=== PATIENT | female | born 1970 | race Caucasian/White ===

== ENCOUNTER 2017-03-08 08:54 | Outpatient (CLI) | payer OTHER ==
[2017-03-08 12:28] LABS: CHOL/HDL RATIO 3.9 (<4.4); CHOLESTEROL 213 mg/dL; GLUCOSE 87 mg/dL (70-100); HDL CHOLESTEROL 54 mg/dL; LDL/HDL RATIO 2.6 (<4.4); TRIGLYCERIDES 107 mg/dL; VLDL CHOLESTEROL 21 mg/dL
== END 2017-03-08 08:55 | disposition home or self-care (01) ==
LOC: LAB.R 08:54
PROVIDERS: ATTEND Physician Assistant Medical
DX: Z00.00 Encounter for general adult medical examination without abnormal findings (principal)
CPT/HCPCS: 80061; 82947

== ENCOUNTER 2017-06-01 08:39 | Outpatient (CLI) | payer OTHER ==
--- NOTE | 2017-06-02 16:37 | Mammography Report ---
DIGITAL SCREENING MAMMOGRAM: 06/01/2017 CLINICAL INDICATION: A 46-year-old with history of late childbearing, family history of breast cancer , history of benign biopsy, for screening. COMPARISON: 01/2014, 09/2011. TECHNIQUE: Routine CC and MLO projections were obtained of the breasts. Bilateral laterally exaggera lorenzo craniocaudal views. FINDINGS: Parenchymal tissue within both breasts is heterogeneously dense, which may lower the sensi tivity of mammography; however, there are no dominant masses, suspicious microcalcifications, or seco ndary signs of malignancy. In comparison to the previous studies, there are no significant changes. ASSESSMENT: NO MAMMOGRAPHIC EVIDENCE OF MALIGNANCY. NO SIGNIFICANT INTERVAL CHANGES. RECOMMENDATION: Screening mammography is recommended annually. BIRADS category 1 - negative. STANDARD QUALIFYING STATEMENTS 1. This examination was reviewed with the aid of Computed-Aided Detection (CAD). 2. A negative or benign imaging report should not delay biopsy if clinically suspicious findings are present. Consider surgical consultation if warranted. More than 5% of cancers are not identified by i maging. 3. Dense breasts may obscure an underlying neoplasm. JOB #: [id number] EXT JOB #:[id number]
== END 2017-06-01 08:40 | disposition home or self-care (01) ==
LOC: DI 08:39
PROVIDERS: ATTEND Physician Assistant Medical
DX: Z12.31 Encounter for screening mammogram for malignant neoplasm of breast (principal); Z80.3 Family history of malignant neoplasm of breast
CPT/HCPCS: 77067

== ENCOUNTER 2020-10-30 14:23 | Outpatient (CLI) | payer BC ==
--- NOTE | 2020-10-31 07:51 | Mammography Report ---
BILATERAL DIGITAL SCREENING MAMMOGRAM 3D/2D: 10/30/2020 CLINICAL: Routine screening. Comparison is made to exams dated: 06/01/2017 mammogram and 02/23/2014 mammogram - [facility]. The tissue of both breasts is heterogeneously dense. This may lower the sensitivity of ma mmography. No significant masses, calcifications, or other findings are seen in either breast. There has been no significant interval change. IMPRESSION: NEGATIVE There is no mammographic evidence of malignancy. A 1 year screening mammogram is recommended. This exam was interpreted at Station ID: [id number]. NOTE: For mammograms, a report in lay terms will be sent to the patient. Approximately 15% of breast malignancies will not be visualized mammographically. In the management of a palpable breast mass, a negative mammogram must not discourage biopsy of a clinically suspicious lesion. Electronically Signed By: Ruel Khan M.D. ar/frenchrad:10/30/2020 16:42:26 ACR BI-RADS Category 1: Negative 3341F PARENCHYMAL PATTERN: (D) - The breast(s) demonstrate(s) heterogeneously dense fibroglandular parenchy ma. BI-RADS CATEGORY: (1) - 1 RECOMMENDATION: (ANNUAL) - Recommend routine annual screening mammography. [id number] 1 year screening LATERALITY: (B)
== END 2020-10-30 14:24 | disposition home or self-care (01) ==
LOC: DI 14:23
DX: Z12.31 Encounter for screening mammogram for malignant neoplasm of breast (principal)

== ENCOUNTER 2021-07-10 14:25 | Outpatient (CLI) | payer BC ==
--- NOTE | 2021-07-11 12:37 | Ultrasound Report ---
PROCEDURE: Pelvic w/Transvaginal INDICATIONS: IUD SURVEILLANCE TECHNIQUE: Real-time scanning was performed of the pelvic organs, with image documentation. Additional endovagi nal scanning was necessary due to incomplete visualization of the adnexal and endometrial structures by transabdominal scanning. COMPARISON: None. FINDINGS: No pathologic free abdominal or pelvic fluid. Uterus: Uterus is anteverted and measures 6.2 x 3.2 x 5.1 cm. The endometrium measures 0.2 cm in combined thickness. An IUD appears in appropriate position, extending into the fundal endometrium. Th ere is a left anterior intramural fibroid measuring 2.3 x 1.7 x 2.2 cm and a right posterior fibroid measuring 0.6 x 0.5 x 0.5 cm. Ovaries: The right ovary measures approximately 2.1 x 1.1 x 1 cm with a volume of 1.2 mL. The left o vary measures 2.2 x 1.2 x 1.3 cm with a volume of 1.7 mL. No adnexal masses identified. IMPRESSION: 1. IUD demonstrated in expected position, extending into the fundal endometrium. 2. Small intramural uterine fibroids as described. Reviewed by: Romario Santamaria MD on 07/11/2021 12:36 PM PST Approved by: Romario Santamaria MD on 07/11/2021 12:36 PM PST Station ID: [id number]
== END 2021-07-10 14:26 | disposition home or self-care (01) ==
LOC: DI 14:25
PROVIDERS: ATTEND Obstetrics & Gynecology
DX: Z30.431 Encounter for routine checking of intrauterine contraceptive device (principal); D25.1 Intramural leiomyoma of uterus